=== PATIENT | female | born 1990 | race Caucasian/White ===

== ENCOUNTER 2022-06-09 11:11 | Emergency (ER) | payer MEDICAID ==
[~2022-06-09] VITALS: Ht 154.9 cm; Wt 72.6 kg
[2022-06-09 11:20] VITALS: BP_SYST 129
--- NOTE | 2022-06-09 11:32 | NUR ---
Patient to ER bed H1 to gown for evaluation. Side rails up.
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
--- NOTE | 2022-06-09 11:40 | NUR ---
ER FT. CARDENAS EXAMINING PT
[2022-06-09] MEDS ORDERED: KETOROLAC TROMETHAMINE 30 MG VIAL IM ONE (11:45)
[2022-06-09] MEDS ORDERED: ACETAMINOPHEN 500 MG TABLET PO ONE (11:45)
[2022-06-09] MEDS ORDERED: NAPR-1172 PO (13:00)
[2022-06-09] MEDS ORDERED: ACET-2634 PO (13:00)
[2022-06-09 13:12] VITALS: BP_SYST 129
--- NOTE | 2022-06-09 13:12 | NUR ---
Patient given written and verbal discharge instructions and verbalizes understanding. ER MD discussed with patient the results and treatment provided. Patient in stable condition. ID arm band removed. Rx of TYLENOL AND NAPROXEN given. Patient educated on pain management and to follow up with PMD. Pain Scale 0/10. Opportunity for questions provided and answered. Medication side effect fact sheet provided.
== END 2022-06-09 13:12 | disposition home or self-care (01) ==
LOC: SED 11:11
DX: S89.92XA Unspecified injury of left lower leg, initial encounter (principal); Z88.1 Allergy status to other antibiotic agents; Z79.899 Other long term (current) drug therapy; W54.1XXA Struck by dog, initial encounter; Y93.89 Activity, other specified; Y92.89 Other specified places as the place of occurrence of the external cause; Y99.8 Other external cause status
CPT/HCPCS: 99284; 29505; 73564; 73590; 73610; 96372; J1885

== ENCOUNTER 2022-12-15 18:43 | Inpatient (IN) | payer MEDICAID ==
[~2022-12-15] VITALS: Ht 154.9 cm; Wt 73.5 kg
[~2022-12-15 18:43] MED LIST: ACET-2634 PO; NAPR-1172 PO
[2022-12-15 18:49] VITALS: BP_SYST 143
[2022-12-15] MEDS ORDERED: HYDROcodone/ACETAMIN 5-325 MG TAB (NORCO/ VICODIN) PO ONE (19:30)
[2022-12-15 20:15] LABS: CALCIUM 8.8 mg/dL (8.4-11.0); CREATININE 0.96 mg/dL (0.55-1.30); TOTAL BILIRUBIN 0.4 mg/dL (0.0-1.0)
[2022-12-15] MEDS ORDERED: KETOROLAC TROMETHAMINE 15 MG VIAL IVP ONE (20:15)
[2022-12-15 20:18] LABS: BILIRUBIN,URINE NEGATIVE (NEGATIVE); BLOOD, URINE 1+ (NEGATIVE); CLARITY/URINE SL CLOUDY (CLEAR); COLOR,URINE YELLOW (YELLOW); GLUCOSE,URINE NEGATIVE (NEGATIVE); KETONES,URINE NEGATIVE (NEGATIVE); LEUKOCYTE ESTERASE ,URINE NEGATIVE (NEGATIVE); NITRITE, URINE NEGATIVE (NEGATIVE); PROTEIN URINE 1+ (NEGATIVE); UROBILINOGEN,URINE 0.2 (0.2-1.0)
[2022-12-15 20:19] LABS: BASOPHILS % (AUTO) 0.2 % (0.0-2.0); EOSINOPHILS % (AUTO) 0.3 % (0.0-4.0); HEMATOCRIT 34.1 % (36-48); HEMOGLOBIN 11.4 g/dL (12.0-16.0); LYMPHOCYTES # (AUTO) 2.7 K/uL (1.0-5.5); MEAN CORPUSCULAR HEMOGLOBIN 28 pg (27-31); MEAN CORPUSCULAR HGB CONC 33 % (32-36); MEAN CORPUSCULAR VOLUME 85 fL (79.0-98.0); MONOCYTES # (AUTO) 1.3 K/uL (0.0-1.0); MONOCYTES % (AUTO) 7.8 % (1.7-9.3); NEUTROPHILS # (AUTO) 12.7 K/uL (1.8-7.7); NEUTROPHILS % (AUTO) 75.7 % (40.0-70.0); PLATELET COUNT (AUTO) 291 K/uL (130-430); RED BLOOD CELL COUNT(AUTO) 4.01 MIL/uL (4.2-6.2); RED CELL DISTRIBUTION WIDTH 14.9 % (9.0-15.0); WHITE BLOOD COUNT (AUTO) 16.7 K/uL (4.8-10.8)
[2022-12-15 20:22] LABS: C-REACTIVE PROTEIN QUANT 16.6 mg/dL (0-0.5)
[2022-12-15 20:48] LABS: ERYTHROCYTE SEDIMENTATION RATE 112 MM/HR (0-20)
[2022-12-15] MEDS ORDERED: MORPHINE SULFATE 10 MG/ML VIAL IVP ONE (21:15)
[2022-12-15 21:36] LABS: BACTERIA,URINE FEW /HPF (None Seen)
[2022-12-15 21:37] LABS: FINE GRANULAR CASTS,URINE 0-10 /LPF (None Seen); MUCUS,URINE 3+ /LPF (None Seen)
[2022-12-15] MEDS ORDERED: CLINDAMYCIN 600 mg/50mL D5W 50 ML IV ONE (22:15)
[2022-12-16] MEDS ORDERED: POTASSIUM CHLORIDE 20 MEQ TAB.PRT.SR PO ONE (00:30)
[2022-12-16] MEDS ORDERED: HYDROcodone/ACETAMIN 5-325 MG TAB (NORCO/ VICODIN) PO PRN (00:30)
[2022-12-16] MEDS ORDERED: ACETAMINOPHEN 325 MG TABLET PO PRN ×2 (00:30→13:00)
[2022-12-16] MEDS ORDERED: MORPHINE 4 MG INJ. 4 MG/ML VIAL IVP ONE (00:30)
[2022-12-16 01:54] VITALS: BP_SYST 114
[2022-12-16] MEDS: HYDROcodone/ACETAMIN 10-325 MG TAB PO PRN ×2 (06:38→10:40)
[2022-12-16 08:34] VITALS: BP_SYST 114
[2022-12-16 12:00] VITALS: BP_SYST 125
[2022-12-16] MEDS ORDERED: NALOXONE HCL 0.4 MG/ML AMP (NARCAN) IVP PRN ×2 (13:00)
[2022-12-16] MEDS: NORMAL SALINE 5 ML DISP.SYRIN IVF SCH ×2 (14:26→21:30)
[2022-12-16 16:00] VITALS: BP_SYST 118
[2022-12-16] MEDS: HYDROcodone/ACETAMIN 5-325 MG TAB (NORCO/ VICODIN) PO PRN ×2 (17:53→23:50)
[2022-12-16] MEDS ORDERED: CLINDAMYCIN HCL 150 MG CAPSULE PO SCH (18:00)
[2022-12-16] MEDS ORDERED: CLINDAMYCIN 300 MG in D5W 50 ML IV SCH (18:00)
[2022-12-16 20:39] VITALS: BP_SYST 112
[2022-12-16] MEDS: DOXYCYCLINE HYCLATE 100 MG CAPSULE PO SCH (21:31)
[2022-12-16] MEDS: AZTREONAM 1 GM in NS 50 ML IV SCH (21:36)
[2022-12-17] MEDS: HYDROcodone/ACETAMIN 5-325 MG TAB (NORCO/ VICODIN) PO PRN (04:35)
[2022-12-17 06:35] LABS: BASOPHILS % (AUTO) 0.4 % (0.0-2.0); EOSINOPHILS # (AUTO) 0.2 K/uL (0.0-0.4); EOSINOPHILS % (AUTO) 1.5 % (0.0-4.0); HEMATOCRIT 32.6 % (36-48); HEMOGLOBIN 10.9 g/dL (12.0-16.0); LYMPHOCYTES # (AUTO) 2.4 K/uL (1.0-5.5); LYMPHOCYTES % (AUTO) 22.2 % (20.5-51.5); MEAN CORPUSCULAR HEMOGLOBIN 29 pg (27-31); MEAN CORPUSCULAR HGB CONC 34 % (32-36); MEAN CORPUSCULAR VOLUME 86 fL (79.0-98.0); MONOCYTES % (AUTO) 9.2 % (1.7-9.3); NEUTROPHILS # (AUTO) 7.3 K/uL (1.8-7.7); NEUTROPHILS % (AUTO) 66.7 % (40.0-70.0); PLATELET COUNT (AUTO) 331 K/uL (130-430); RED BLOOD CELL COUNT(AUTO) 3.82 MIL/uL (4.2-6.2); RED CELL DISTRIBUTION WIDTH 15.2 % (9.0-15.0); WHITE BLOOD COUNT (AUTO) 10.9 K/uL (4.8-10.8)
[2022-12-17] MEDS: NORMAL SALINE 5 ML DISP.SYRIN IVF SCH ×3 (06:37→22:19)
[2022-12-17] MEDS: AZTREONAM 1 GM in NS 50 ML IV SCH ×3 (06:38→22:20)
[2022-12-17 06:58] LABS: CALCIUM 8.2 mg/dL (8.4-11.0); CREATININE 0.57 mg/dL (0.55-1.30)
[2022-12-17 08:00] VITALS: BP_SYST 137
[2022-12-17 08:47] LABS: ERYTHROCYTE SEDIMENTATION RATE 90 MM/HR (0-20)
[2022-12-17] MEDS: DOXYCYCLINE HYCLATE 100 MG CAPSULE PO SCH ×2 (10:24→22:19)
[2022-12-17] MEDS: ONDANSETRON HCL 4 MG/2 ML VIAL IVP PRN (10:27)
[2022-12-17] MEDS: HYDROcodone/ACETAMIN 10-325 MG TAB PO PRN ×3 (10:28→20:07)
[2022-12-17 12:49] VITALS: BP_SYST 127
[2022-12-17 17:19] VITALS: BP_SYST 119
[2022-12-17 20:03] VITALS: BP_SYST 135
[2022-12-18 01:37] VITALS: BP_SYST 127
[2022-12-18] MEDS: HYDROcodone/ACETAMIN 10-325 MG TAB PO PRN ×4 (02:15→21:32)
[2022-12-18] MEDS ORDERED: MILK OF MAGNESIA 30 ML UDC PO PRN (05:00)
[2022-12-18] MEDS ORDERED: MILK OF MAGNESIA 30 ML UDC PO ONE (05:00)
[2022-12-18] MEDS: AZTREONAM 1 GM in NS 50 ML IV SCH ×3 (06:00→21:17)
[2022-12-18] MEDS: NORMAL SALINE 5 ML DISP.SYRIN IVF SCH ×3 (06:04→21:19)
[2022-12-18 07:53] LABS: BASOPHILS % (AUTO) 0.4 % (0.0-2.0); EOSINOPHILS # (AUTO) 0.2 K/uL (0.0-0.4); EOSINOPHILS % (AUTO) 2.1 % (0.0-4.0); HEMATOCRIT 32.7 % (36-48); HEMOGLOBIN 10.9 g/dL (12.0-16.0); LYMPHOCYTES # (AUTO) 2.3 K/uL (1.0-5.5); LYMPHOCYTES % (AUTO) 21.2 % (20.5-51.5); MEAN CORPUSCULAR HEMOGLOBIN 29 pg (27-31); MEAN CORPUSCULAR HGB CONC 33 % (32-36); MEAN CORPUSCULAR VOLUME 86 fL (79.0-98.0); MONOCYTES # (AUTO) 0.9 K/uL (0.0-1.0); MONOCYTES % (AUTO) 8.6 % (1.7-9.3); NEUTROPHILS # (AUTO) 7.4 K/uL (1.8-7.7); NEUTROPHILS % (AUTO) 67.7 % (40.0-70.0); PLATELET COUNT (AUTO) 375 K/uL (130-430); RED CELL DISTRIBUTION WIDTH 14.9 % (9.0-15.0); WHITE BLOOD COUNT (AUTO) 10.9 K/uL (4.8-10.8)
[2022-12-18 08:00] VITALS: BP_SYST 124
[2022-12-18 08:02] LABS: ERYTHROCYTE SEDIMENTATION RATE 94 MM/HR (0-20)
[2022-12-18 08:13] LABS: ALBUMIN 2.3 g/dL (3.4-4.8); C-REACTIVE PROTEIN QUANT 8.9 mg/dL (0-0.5); CALCIUM 8.5 mg/dL (8.4-11.0); CREATININE 0.57 mg/dL (0.55-1.30); TOTAL BILIRUBIN 0.2 mg/dL (0.0-1.0)
[2022-12-18] MEDS: DOXYCYCLINE HYCLATE 100 MG CAPSULE PO SCH ×2 (09:27→21:16)
[2022-12-18] MEDS: ONDANSETRON HCL 4 MG/2 ML VIAL IVP PRN ×2 (09:27→21:32)
[2022-12-18 11:07] LABS: HEPATITIS A AB, IgM Negative (Negative); HEPATITIS B CORE AB, IgM Negative (Negative); HEPATITIS B SURFACE AG Negative (Negative)
[2022-12-18 16:07] LABS: ANTI NUCLEAR AB WITH REFLEX Negative (Negative)
[2022-12-18 20:00] VITALS: BP_SYST 139
[2022-12-19 00:26] VITALS: BP_SYST 123
[2022-12-19] MEDS: ONDANSETRON HCL 4 MG/2 ML VIAL IVP PRN (05:23)
[2022-12-19] MEDS: AZTREONAM 1 GM in NS 50 ML IV SCH ×3 (05:24→23:00)
[2022-12-19] MEDS: HYDROcodone/ACETAMIN 10-325 MG TAB PO PRN ×3 (05:35→20:48)
[2022-12-19] MEDS: NORMAL SALINE 5 ML DISP.SYRIN IVF SCH ×3 (05:36→23:01)
[2022-12-19 06:34] LABS: BASOPHILS # (AUTO) 0.1 K/uL (0.0-0.2); BASOPHILS % (AUTO) 0.4 % (0.0-2.0); EOSINOPHILS # (AUTO) 0.3 K/uL (0.0-0.4); EOSINOPHILS % (AUTO) 2.1 % (0.0-4.0); HEMATOCRIT 31.9 % (36-48); HEMOGLOBIN 10.5 g/dL (12.0-16.0); LYMPHOCYTES # (AUTO) 2.4 K/uL (1.0-5.5); LYMPHOCYTES % (AUTO) 18.4 % (20.5-51.5); MEAN CORPUSCULAR HEMOGLOBIN 28 pg (27-31); MEAN CORPUSCULAR HGB CONC 33 % (32-36); MEAN CORPUSCULAR VOLUME 86 fL (79.0-98.0); MONOCYTES % (AUTO) 7.3 % (1.7-9.3); NEUTROPHILS # (AUTO) 9.3 K/uL (1.8-7.7); NEUTROPHILS % (AUTO) 71.8 % (40.0-70.0); PLATELET COUNT (AUTO) 449 K/uL (130-430)
[2022-12-19 06:51] LABS: CALCIUM 8.3 mg/dL (8.4-11.0); CREATININE 0.64 mg/dL (0.55-1.30)
[2022-12-19 06:53] LABS: ERYTHROCYTE SEDIMENTATION RATE 91 MM/HR (0-20)
[2022-12-19 08:00] VITALS: BP_SYST 122
[2022-12-19] MEDS: DOXYCYCLINE HYCLATE 100 MG CAPSULE PO SCH ×2 (09:47→20:49)
[2022-12-19 12:00] VITALS: BP_SYST 148
[2022-12-19] MEDS ORDERED: LEVO-62 PO (12:45)
[2022-12-19] MEDS ORDERED: DOXY100C5 PO (12:45)
[2022-12-19] MEDS ORDERED: MILK OF MAGNESIA 30 ML UDC PO ONE (12:45)
[2022-12-19 16:00] VITALS: BP_SYST 122
[2022-12-19 20:00] VITALS: BP_SYST 123
[2022-12-20 04:03] VITALS: BP_SYST 130
[2022-12-20] MEDS: AZTREONAM 1 GM in NS 50 ML IV SCH (06:52)
[2022-12-20] MEDS: NORMAL SALINE 5 ML DISP.SYRIN IVF SCH (06:54)
[2022-12-20 07:20] LABS: BASOPHILS % (AUTO) 0.4 % (0.0-2.0); EOSINOPHILS # (AUTO) 0.2 K/uL (0.0-0.4); EOSINOPHILS % (AUTO) 1.7 % (0.0-4.0); HEMATOCRIT 33.5 % (36-48); LYMPHOCYTES # (AUTO) 2.2 K/uL (1.0-5.5); LYMPHOCYTES % (AUTO) 17.3 % (20.5-51.5); MEAN CORPUSCULAR HEMOGLOBIN 28 pg (27-31); MEAN CORPUSCULAR HGB CONC 33 % (32-36); MEAN CORPUSCULAR VOLUME 86 fL (79.0-98.0); MONOCYTES # (AUTO) 0.7 K/uL (0.0-1.0); MONOCYTES % (AUTO) 5.2 % (1.7-9.3); NEUTROPHILS # (AUTO) 9.5 K/uL (1.8-7.7); NEUTROPHILS % (AUTO) 75.4 % (40.0-70.0); PLATELET COUNT (AUTO) 508 K/uL (130-430); RED CELL DISTRIBUTION WIDTH 15.1 % (9.0-15.0); WHITE BLOOD COUNT (AUTO) 12.6 K/uL (4.8-10.8)
[2022-12-20 07:57] LABS: C-REACTIVE PROTEIN QUANT 5.4 mg/dL (0-0.5); CALCIUM 8.6 mg/dL (8.4-11.0); CREATININE 0.56 mg/dL (0.55-1.30)
[2022-12-20 08:00] VITALS: BP_SYST 117
[2022-12-20 08:24] LABS: ERYTHROCYTE SEDIMENTATION RATE 110 MM/HR (0-20)
[2022-12-20] MEDS: DOXYCYCLINE HYCLATE 100 MG CAPSULE PO SCH (10:11)
[2022-12-20 10:37] VITALS: BP_SYST 164
[2022-12-20 12:23] VITALS: BP_SYST 136
[2022-12-22 13:07] LABS: HEPATITIS C VIRUS AB Negative <0.8 s/co (0.0-0.7)
== END 2022-12-20 12:50 | disposition home or self-care (01) | DRG 385 ==
LOC: SED 18:43 → SMU 12-16 00:26
PROVIDERS: ADMIT Preventive Medicine Preventive Medicine/Occupational Environmental Medicine; ATTEND Preventive Medicine Preventive Medicine/Occupational Environmental Medicine
DX: R21 Rash and other nonspecific skin eruption (principal); E44.1 Mild protein-calorie malnutrition; E83.51 Hypocalcemia; E88.09 Other disorders of plasma-protein metabolism, not elsewhere classified; N39.0 Urinary tract infection, site not specified; E87.6 Hypokalemia; J02.9 Acute pharyngitis, unspecified; D64.9 Anemia, unspecified; Z20.822 Contact with and (suspected) exposure to COVID-19; R73.9 Hyperglycemia, unspecified; J45.909 Unspecified asthma, uncomplicated; K59.00 Constipation, unspecified; Z88.1 Allergy status to other antibiotic agents; Z79.899 Other long term (current) drug therapy; Z88.8 Allergy status to other drugs, medicaments and biological substances; Z79.1 Long term (current) use of non-steroidal anti-inflammatories (NSAID)
CPT/HCPCS: 36415; 71045; 76700-TC; 80048; 80053; 80074; 81000; 83605; 85025; 85651-TC; 86038; 86140; 86431; 86592; 86803; 87040; 93306; 93971; 96365; 96375; 99285; J1885; J2270; J2405; J3490; J7060